=== PATIENT | female | born 1945 | race Caucasian/White ===

== ENCOUNTER 2019-01-31 21:40 | Observation (INO) ==
[2019-01-31] MEDS ORDERED: ALUM/MAG/SIMETH/LIDO VISC 1:1 30 ML BOTTLE PO STA (22:16)
[2019-01-31] MEDS ORDERED: MORPHINE 4 MG/1 ML VIAL IV STA (22:16)
[2019-01-31] MEDS ORDERED: NITROGLYCERIN 2% OINT 1 INCH/GM PACK TOP STA (22:16)
[2019-01-31] MEDS ORDERED: ONDANSETRON 4 MG/2 ML VIAL IV STA (22:16)
[2019-01-31 22:35] LABS: Alanine Aminotransferase 22 U/L (13-56); Albumin 3.6 G/DL (3.4-5.0); Alkaline Phosphatase 58 U/L (45-117); Aspartate Amino Transferase 19 U/L (0-37); Bilirubin,Total < 0.39 MG/DL (0.2-1.0); Blood Urea Nitrogen 17 MG/DL (7-18); Calcium 8.9 MG/DL (8.5-10.1); Glucose 249 MG/DL (74-106); Osmolality,Calculated 288.4 MOS/KG (273-304); Potassium 4.4 MMOL/L (3.5-5.1); Sodium 140 MMOL/L (136-145); Total Protein 6.7 G/DL (6.4-8.3)
[2019-01-31 23:07] LABS: Basophils # 0.1 10*3/uL (0.0-0.2); Basophils % 1.5 % (0.0-0.8); Eosinophils # 0.4 10*3/uL (0.0-0.87); Eosinophils % 6.5 % (0.00-10.9); Hematocrit 36.7 VOL% (35.7-47.0); Hemoglobin 11.8 GM/DL (12.0-16.0); Immature Granulocytes % 0.6 %; Immature Granulocytes Absolute 0.04 #; Lymphocytes # 2.1 10*3/uL (1.4-4.0); Lymphocytes % 34.5 % (21.3-54.2); Mean Corpuscular HGB Conc 32.2 GM/DL (32-36); Mean Corpuscular Hemoglobin 29 PG (27-34); Mean Platelet Volume 11.8 FL (9.6-12.0); Monocytes # 0.6 10*3/uL (0.11-0.8); Monocytes % 10.2 % (1.7-12.7); Neutrophils # 2.9 10*3/uL (1.4-7.4); Neutrophils % 46.7 % (38.7-73.9); Platelet Count 260 T/CUMM (130-400); Red Blood Count 4.08 MC/CUMM (3.8-5.5); White Blood Count 6.2 T/CUMM (4-12)
[2019-01-31 23:08] LABS: PT Patient Result 10.4 SECS
[2019-02-01] MEDS ORDERED: ONDANSETRON 4 MG/2 ML VIAL IV PRN (00:32)
[2019-02-01] MEDS ORDERED: NITROGLYCERIN SL 0.4 MG TABLET SL PRN (00:32)
[2019-02-01] MEDS ORDERED: MORPHINE 4 MG/1 ML VIAL IV PRN (00:32)
[2019-02-01] MEDS ORDERED: ACETAMINOPHEN 325 MG TABLET PO PRN (00:32)
[2019-02-01] MEDS ORDERED: DOCUSATE SODIUM 100 MG CAPSULE PO PRN (00:32)
[2019-02-01] MEDS ORDERED: ZALEPLON 5 MG CAPSULE PO PRN (00:32)
[2019-02-01] MEDS ORDERED: GLUCAGON 1 MG VIAL IM PRN (00:52)
[2019-02-01] MEDS ORDERED: DEXTROSE 50% 25 GM/50 ML SYRINGE IV PRN (00:52)
[2019-02-01] MEDS ORDERED: hydrALAZINE 20 MG/1 ML VIAL IV PRN (01:00)
[2019-02-01 01:57] LABS: Basophils # 0.1 10*3/uL (0.0-0.2); Basophils % 1.4 % (0.0-0.8); Eosinophils # 0.3 10*3/uL (0.0-0.87); Eosinophils % 4.7 % (0.00-10.9); Hematocrit 35.1 VOL% (35.7-47.0); Hemoglobin 11.4 GM/DL (12.0-16.0); Immature Granulocytes % 0.4 %; Immature Granulocytes Absolute 0.03 #; Lymphocytes # 2.5 10*3/uL (1.4-4.0); Lymphocytes % 34.6 % (21.3-54.2); Mean Corpuscular HGB Conc 32.5 GM/DL (32-36); Mean Corpuscular Hemoglobin 29 PG (27-34); Mean Corpuscular Volume 90.2 FL (87-102); Mean Platelet Volume 10.3 FL (9.6-12.0); Monocytes # 0.7 10*3/uL (0.11-0.8); Monocytes % 9.9 % (1.7-12.7); Neutrophils # 3.6 10*3/uL (1.4-7.4); Platelet Count 243 T/CUMM (130-400); Red Blood Count 3.89 MC/CUMM (3.8-5.5); White Blood Count 7.3 T/CUMM (4-12)
[2019-02-01 02:42] LABS: Calcium 8.9 MG/DL (8.5-10.1); Potassium 4.6 MMOL/L (3.5-5.1); Risk Ratio 5.09; Thyroid Stimulating Hormone 6.16 uIU/ml (0.358-3.74)
[2019-02-01] MEDS: INSULIN REGULAR 100 UNIT/ML SUBCUT SCH ×5 (02:48→21:23)
[2019-02-01] MEDS: ENOXAPARIN 40 MG/0.4 ML SYRINGE SUBCUT SCH (02:53)
[2019-02-01] MEDS: SUCRALFATE 1 GM/10 ML UDCUP PO SCH ×4 (09:28→21:21)
[2019-02-01] MEDS: PANTOPRAZOLE 40 MG TABLET PO SCH (11:50)
[2019-02-01] MEDS: ASPIRIN EC 81 MG TABLET PO SCH (11:50)
[2019-02-01] MEDS: GEMFIBROZIL 600 MG TABLET PO SCH (16:45)
[2019-02-01] MEDS: CLOPIDOGREL 75 MG TABLET PO SCH (16:45)
[2019-02-01] MEDS: CARVEDILOL 3.125 MG TABLET PO SCH (17:56)
[2019-02-01] MEDS ORDERED: OMEGA 3 ACID ETHYL ESTERS 1 GM CAPSULE PO SCH (21:00)
[2019-02-01] MEDS: METOPROLOL TARTRATE 25 MG TABLET PO SCH (21:22)
[2019-02-02] MEDS: ENOXAPARIN 40 MG/0.4 ML SYRINGE SUBCUT SCH (01:05)
[2019-02-02] MEDS ORDERED: metFORMIN 500 MG TABLET PO SCH (08:00)
[2019-02-02 08:24] VITALS: BP 137/63
[2019-02-02] MEDS: ASPIRIN EC 81 MG TABLET PO SCH (08:52)
[2019-02-02] MEDS: PANTOPRAZOLE 40 MG TABLET PO SCH (08:52)
[2019-02-02] MEDS: CARVEDILOL 3.125 MG TABLET PO SCH (08:52)
[2019-02-02] MEDS: METOPROLOL TARTRATE 25 MG TABLET PO SCH (08:52)
[2019-02-02] MEDS: CLOPIDOGREL 75 MG TABLET PO SCH (08:52)
[2019-02-02] MEDS: GEMFIBROZIL 600 MG TABLET PO SCH (08:52)
[2019-02-02] MEDS: SUCRALFATE 1 GM/10 ML UDCUP PO SCH (08:53)
[2019-02-02] MEDS: INSULIN REGULAR 100 UNIT/ML SUBCUT SCH (08:53)
[2019-02-02] MEDS ORDERED: PITAVASTATIN 2 MG TABLET PO SCH (09:00)
[2019-02-02] MEDS ORDERED: EZETIMIBE 10 MG TABLET PO SCH (09:00)
== END 2019-02-02 11:38 | disposition home or self-care (01) ==
LOC: EDUNIT# → EDBD → N.ED 21:40 → N.EDINP 21:40 → N.TELEN 02-01 01:00
PROVIDERS: ADMIT Internal Medicine; ATTEND Internal Medicine

== ENCOUNTER 2020-10-09 15:46 | Observation (INO) ==
[2020-10-09] MEDS ORDERED: SODIUM CHLORIDE 0.9% 1,000 ML IV STA (17:23)
[2020-10-09] MEDS ORDERED: ACETAMINOPHEN 325 MG TABLET PO ONE (17:23)
[2020-10-09 18:38] LABS: Basophils # 0.1 10*3/uL (0.0-0.2); Basophils % 1.1 % (0.0-0.8); Eosinophils # 0.6 10*3/uL (0.0-0.87); Eosinophils % 6.1 % (0.00-10.9); Hematocrit 32.2 VOL% (35.7-47.0); Hemoglobin 10.8 GM/DL (12.0-16.0); Immature Granulocytes % 0.4 %; Immature Granulocytes Absolute 0.04 #; Lymphocytes # 2.9 10*3/uL (1.4-4.0); Lymphocytes % 31.4 % (21.3-54.2); Mean Corpuscular HGB Conc 33.5 GM/DL (32-36); Mean Corpuscular Volume 88.5 FL (87-102); Mean Platelet Volume 9.6 FL (9.6-12.0); Monocytes % 8.2 % (1.7-12.7); Neutrophils % 52.8 % (38.7-73.9); Platelet Count 270 T/CUMM (130-400); Red Blood Count 3.64 MC/CUMM (3.8-5.5); Red Cell Distribution Width 13.7 % (9.3-17.3); White Blood Count 9.1 T/CUMM (4-12)
[2020-10-09 18:54] LABS: Alanine Aminotransferase 37 U/L (13-56); Albumin 3.7 G/DL (3.4-5.0); Alkaline Phosphatase 45 U/L (45-117); Aspartate Amino Transferase 23 U/L (0-37); Bilirubin,Total < 0.39 MG/DL (0.2-1.0); Blood Urea Nitrogen 19 MG/DL (7-18); Estimated Glom Filtration Rate 52 ML/MIN; Glucose 99 MG/DL (74-106); Osmolality,Calculated 282.3 MOS/KG (273-304); Total Protein 6.9 G/DL (6.4-8.3)
[2020-10-09] MEDS ORDERED: ASPIRIN CHEW 81 MG TABLET PO STA (19:04)
[2020-10-09] MEDS ORDERED: hydrALAZINE 20 MG/1 ML VIAL IV STA (19:16)
[2020-10-09] MEDS ORDERED: LABETALOL 20 MG/4 ML SYRINGE IV STA ×3 (19:20→19:52)
[2020-10-09 19:42] LABS: Sedimentation Rate-Westergren 28 MM/HR (0-30)
[2020-10-09] MEDS ORDERED: cefTRIAXone 1,000 MG in SODIUM CHLORIDE 0.9% 100 ML IV STA (20:10)
[2020-10-09 21:32] LABS: Bilirubin,Urine Negative (Negative); Blood, Urine Small mg/dL (Negative); Glucose,Urine (UA) Negative (Negative); Ketones,Urine Negative (Negative); Mucus,Urine Occasional /LPF (Occasional); Nitrite,Urine Negative (Negative); Protein,Urine Negative; RBC,Urine 2 /HPF (0-4); Squamous Epithelial Cell,Urine Occasional /HPF (0-10); Urine Appearance Slightly Hazy (Clear); Urine Color Straw (Yellow); Urine Specific Gravity 1.005 (1.001-1.035); Urine Urobilinogen < 2.0 EU/DL (0.2-1.0); WBC,Urine 6 /HPF (0-6)
[2020-10-09] MEDS ORDERED: ZALEPLON 5 MG CAPSULE PO PRN (23:58)
[2020-10-09] MEDS ORDERED: diphenhydrAMINE CAP 25 MG CAPSULE PO PRN (23:58)
[2020-10-09] MEDS ORDERED: traMADol 50 MG TABLET PO PRN (23:59)
[2020-10-10] MEDS ORDERED: GLUCAGON 1 MG VIAL IM PRN (00:02)
[2020-10-10] MEDS ORDERED: DEXTROSE 50% 25 GM/50 ML VIAL IV PRN (00:02)
[2020-10-10] MEDS: EZETIMIBE 10 MG TABLET PO SCH (08:56)
[2020-10-10] MEDS: carvediloL 6.25 MG TABLET PO SCH ×2 (08:56→16:37)
[2020-10-10] MEDS: metFORMIN 850 MG TABLET PO SCH ×2 (08:56→16:37)
[2020-10-10] MEDS: ASPIRIN EC 81 MG TABLET PO SCH (08:56)
[2020-10-10] MEDS ORDERED: ASPIRIN 325 MG TABLET PO SCH (09:00)
[2020-10-10] MEDS ORDERED: LIVALO 2 MG PO SCH (09:00)
[2020-10-10] MEDS ORDERED: NITROGLYCERIN SL 0.4 MG TABLET SL PRN (10:11)
[2020-10-10] MEDS: SIMVASTATIN 20 MG TABLET PO SCH (11:18)
[2020-10-10] MEDS: cilostazoL 50 MG TABLET PO SCH ×2 (11:18→21:53)
[2020-10-10] MEDS: MAGNESIUM CHLORIDE 64 MG TABLET PO SCH ×2 (11:18→21:53)
[2020-10-10] MEDS ORDERED: methylPREDNISolone SOD SUC 125 MG/2 ML VIAL IV ONE (11:23)
[2020-10-10] MEDS ORDERED: KETOROLAC 15 MG/1 ML VIAL IV ONE (11:23)
[2020-10-11] MEDS ORDERED: SIMETHICONE CHEW 125 MG TABLET PO PRN (05:16)
[2020-10-11 08:31] VITALS: BP 124/60
[2020-10-11] MEDS ORDERED: PANTOPRAZOLE 40 MG TABLET PO SCH (09:00)
[2020-10-11] MEDS ORDERED: LOSARTAN 25 MG TABLET PO SCH (09:18)
[2020-10-11 09:27] LABS: Blood Urea Nitrogen 35 MG/DL (7-18); Estimated Glom Filtration Rate 32 ML/MIN; Glucose 314 MG/DL (74-106); Osmolality,Calculated 292.8 MOS/KG (273-304); Troponin I 0.024 NG/ML (0.00-0.045)
[2020-10-11] MEDS: cilostazoL 50 MG TABLET PO SCH (09:34)
[2020-10-11] MEDS: SIMVASTATIN 20 MG TABLET PO SCH (09:34)
[2020-10-11] MEDS: ASPIRIN EC 81 MG TABLET PO SCH (09:34)
[2020-10-11] MEDS: EZETIMIBE 10 MG TABLET PO SCH (09:34)
[2020-10-11] MEDS: carvediloL 6.25 MG TABLET PO SCH (09:35)
[2020-10-11] MEDS: MAGNESIUM CHLORIDE 64 MG TABLET PO SCH (09:35)
[2020-10-11] MEDS: metFORMIN 850 MG TABLET PO SCH (09:35)
== END 2020-10-11 11:04 | disposition home or self-care (01) ==
LOC: N.ED 15:46 → INTOOBSV 20:32 → N.EDINP 20:32 → N.TELES 22:36
PROVIDERS: ADMIT Internal Medicine Cardiovascular Disease; ATTEND Internal Medicine Cardiovascular Disease

== ENCOUNTER 2022-03-12 09:17 | Observation (INO) ==
[2022-03-12] MEDS ORDERED: NITROGLYCERIN SL 0.4 MG TABLET SL STA (09:55)
[2022-03-12] MEDS ORDERED: ASPIRIN CHEW 81 MG TABLET PO STA (09:55)
[2022-03-12 10:10] LABS: Basophils # 0.1 10*3/uL (0.0-0.2); Basophils % 1.1 % (0.0-0.8); Eosinophils # 0.4 10*3/uL (0.0-0.87); Eosinophils % 4.6 % (0.00-10.9); Hematocrit 39.3 VOL% (35.7-47.0); Hemoglobin 12.9 GM/DL (12.0-16.0); Immature Granulocytes % 0.4 %; Immature Granulocytes Absolute 0.04 #; Lymphocytes # 2.8 10*3/uL (1.4-4.0); Lymphocytes % 29.6 % (21.3-54.2); Mean Corpuscular HGB Conc 32.8 GM/DL (32-36); Mean Corpuscular Volume 88.9 FL (87-102); Monocytes # 0.7 10*3/uL (0.11-0.8); Monocytes % 6.9 % (1.7-12.7); Neutrophils % 57.4 % (38.7-73.9); Platelet Count 328 T/CUMM (130-400); Red Blood Count 4.42 MC/CUMM (3.8-5.5); Red Cell Distribution Width 13.7 % (9.3-17.3); White Blood Count 9.4 T/CUMM (4-12)
[2022-03-12 10:55] LABS: Calcium 9.8 MG/DL (8.5-10.1); Osmolality,Calculated 279.4 MOS/KG (273-304); Potassium 3.8 MMOL/L (3.5-5.1)
[2022-03-12] MEDS ORDERED: MORPHINE 2 MG/1 ML SYRINGE IV PRN (13:58)
[2022-03-12] MEDS ORDERED: ACETAMINOPHEN 325 MG TABLET PO PRN (13:58)
[2022-03-12] MEDS ORDERED: DOCUSATE SODIUM 100 MG CAPSULE PO PRN (13:58)
[2022-03-12] MEDS ORDERED: GLUCAGON 1 MG VIAL IM PRN (13:58)
[2022-03-12] MEDS ORDERED: DEXTROSE 10% 250 ML BAG IV PRN (14:08)
[2022-03-12] MEDS ORDERED: NITROGLYCERIN SL 0.4 MG TABLET SL PRN (14:56)
[2022-03-12] MEDS ORDERED: ENOXAPARIN 40 MG/0.4 ML SYRINGE SUBCUT SCH (15:00)
[2022-03-12] MEDS: carvediloL 3.125 MG TABLET PO SCH (16:14)
[2022-03-12] MEDS: INSULIN LISPRO 100 UNIT/ML SUBCUT SCH ×2 (17:55→21:21)
[2022-03-12] MEDS ORDERED: SIMVASTATIN 20 MG TABLET PO SCH (21:00)
[2022-03-12] MEDS: cilostazoL 50 MG TABLET PO SCH (21:20)
[2022-03-13 04:23] LABS: Basophils # 0.1 10*3/uL (0.0-0.2); Basophils % 1.6 % (0.0-0.8); Eosinophils # 0.3 10*3/uL (0.0-0.87); Eosinophils % 4.9 % (0.00-10.9); Hemoglobin 10.8 GM/DL (12.0-16.0); Immature Granulocytes % 0.6 %; Immature Granulocytes Absolute 0.04 #; Lymphocytes # 2.1 10*3/uL (1.4-4.0); Lymphocytes % 31.5 % (21.3-54.2); Mean Corpuscular HGB Conc 32.7 GM/DL (32-36); Mean Corpuscular Volume 88.7 FL (87-102); Mean Platelet Volume 9.7 FL (9.6-12.0); Monocytes # 0.7 10*3/uL (0.11-0.8); Monocytes % 10.3 % (1.7-12.7); Neutrophils % 51.1 % (38.7-73.9); Platelet Count 244 T/CUMM (130-400); Red Blood Count 3.72 MC/CUMM (3.8-5.5); Red Cell Distribution Width 13.9 % (9.3-17.3); White Blood Count 6.8 T/CUMM (4-12)
[2022-03-13 04:42] LABS: Calcium 9.1 MG/DL (8.5-10.1); Osmolality,Calculated 287.1 MOS/KG (273-304); Potassium 3.8 MMOL/L (3.5-5.1); Risk Ratio 2.76; VLDL Cholesterol 26.8 MG/DL
[2022-03-13] MEDS ORDERED: SIMVASTATIN 40 MG TABLET PO SCH (09:00)
[2022-03-13] MEDS ORDERED: ASPIRIN EC 81 MG TABLET PO SCH (09:00)
[2022-03-13] MEDS: carvediloL 3.125 MG TABLET PO SCH (10:18)
[2022-03-13] MEDS: cilostazoL 50 MG TABLET PO SCH (10:18)
[2022-03-13] MEDS: INSULIN LISPRO 100 UNIT/ML SUBCUT SCH ×2 (11:23→12:03)
[2022-03-13 12:28] VITALS: BP 119/52
== END 2022-03-13 15:48 | disposition home or self-care (01) ==
LOC: N.ED 09:17 → N.EDINP 09:17 → SUATTDRO 13:58 → N.TELES 14:52
PROVIDERS: ADMIT Internal Medicine; ATTEND Internal Medicine